=== PATIENT | male | born 1995 | race African-American/Black ===

== ENCOUNTER 2018-09-07 16:22 | Emergency (ER) | payer OTHER ==
[~2018-09-07] VITALS: Ht 182.9 cm; Wt 113.4 kg
[2018-09-07 16:30] VITALS: BP 134/63
== END 2018-09-07 18:57 | disposition home or self-care (01) ==
LOC: ER 16:24
DX: S01.112D Laceration without foreign body of left eyelid and periocular area, subsequent encounter (principal); Z98.890 Other specified postprocedural states; W50.0XXD Accidental hit or strike by another person, subsequent encounter

== ENCOUNTER 2018-09-11 19:46 | Emergency (ER) | payer OTHER ==
[~2018-09-11] VITALS: Ht 182.9 cm; Wt 111.1 kg
[2018-09-11 19:58] VITALS: BP 107/55
== END 2018-09-11 20:20 | disposition home or self-care (01) ==
LOC: ER 19:51
DX: S01.112D Laceration without foreign body of left eyelid and periocular area, subsequent encounter (principal); Z98.890 Other specified postprocedural states; X58.XXXD Exposure to other specified factors, subsequent encounter